=== PATIENT | female | born 1970 | race Caucasian/White ===

== ENCOUNTER 2016-04-25 15:50 | Emergency (ER) | payer OTHER | END 2016-04-25 17:25 | disposition home or self-care (01) | LOC: ER1 15:50 | DX: S39.012A Strain of muscle, fascia and tendon of lower back, initial encounter (principal); F17.210 Nicotine dependence, cigarettes, uncomplicated; K21.9 Gastro-esophageal reflux disease without esophagitis; G89.29 Other chronic pain; Z88.6 Allergy status to analgesic agent; Z79.891 Long term (current) use of opiate analgesic; Z79.899 Other long term (current) drug therapy; X58.XXXA Exposure to other specified factors, initial encounter | CPT/HCPCS: 96372; 99283; J1100; J1885 ==

== ENCOUNTER → 2016-05-13 | Outpatient (CLI) | payer OTHER ==
[2016-05-13 18:14] LABS: RED BLOOD COUNT 4.46 M/UL (4.00-5.10); WHITE BLOOD COUNT 10.7 K/UL (4.5-11.0)
[2016-05-13 18:28] LABS: BUN/CREATININE RATIO 7 (0-10)
== END ==
LOC: LAB 17:26
PROVIDERS: Orthopaedic Surgery
DX: Z01.812 Encounter for preprocedural laboratory examination (principal)
CPT/HCPCS: 36415; 71020; 80048; 85027

== ENCOUNTER 2016-08-03 12:39 | Emergency (ER) | payer OTHER ==
[2016-08-03 13:58] LABS: RED BLOOD COUNT 4.46 M/UL (4.00-5.10); WHITE BLOOD COUNT 10.2 K/UL (4.5-11.0)
== END 2016-08-03 16:36 | disposition home or self-care (01) ==
LOC: ER1 12:39
PROVIDERS: Emergency Medicine
DX: M79.89 Other specified soft tissue disorders (principal); E78.5 Hyperlipidemia, unspecified; F17.200 Nicotine dependence, unspecified, uncomplicated; Z88.6 Allergy status to analgesic agent
CPT/HCPCS: 36415; 71010; 80053; 82550; 83880; 84484; 85025; 93005; 93925; 93970; 99284

== ENCOUNTER → 2020-03-03 | Outpatient (CLI) | payer OTHER | LOC: KOH-I 14:17 | DX: M25.511 Pain in right shoulder (principal) | CPT/HCPCS: 73030 ==

== ENCOUNTER 2021-06-18 18:22 | Observation (INO) | payer OTHER ==
[~2021-06-18] VITALS: Ht 157.5 cm; Wt 53.1 kg
[~2021-06-18 18:22] MED LIST: DISKETS40 MG PO; VITAMIN D21250 MCG PO
[2021-06-18 23:30] LABS: RED BLOOD COUNT 4.34 M/UL (4.00-5.10); WHITE BLOOD COUNT 13.3 K/UL (4.5-11.0)
[2021-06-18 23:48] LABS: BUN/CREATININE RATIO 8 (0-10)
[2021-06-19] MEDS ORDERED: EFFER-K 10 MEQ10 MEQ PO (09:53)
[2021-06-19] MEDS ORDERED: ATORVASTATIN CA20 MG PO (09:53)
[2021-06-19] MEDS ORDERED: BUSPIRONE HCL15 MG PO (09:53)
[2021-06-19] MEDS ORDERED: CITALOPRAM HBR10 MG PO (09:54)
[2021-06-19] MEDS ORDERED: VOLTAREN ARTHRI20 GM TOP (09:56)
[2021-06-19] MEDS ORDERED: LASIX TAB 20 MG20 MG PO (09:57)
[2021-06-19] MEDS ORDERED: GABAPENTIN800 MG PO (09:58)
[2021-06-19] MEDS ORDERED: HYDROCHLOROTH12.5 M1 PO (09:59)
[2021-06-19] MEDS ORDERED: ROBAXIN 750 MG750 MG PO (09:59)
[2021-06-19] MEDS ORDERED: DOCUSATE SODIU100 MG PO (10:00)
[2021-06-19] MEDS ORDERED: OMEPRAZOLE40 MG PO (10:00)
[2021-06-19] MEDS ORDERED: BENADRYL25 MG PO (10:06)
[2021-06-19] MEDS ORDERED: HYDROCODON-ACE1 EAC4 PO (14:12)
== END 2021-06-20 12:00 | disposition home or self-care (01) ==
LOC: ER1 18:22 → MED SURG 4 06-19 02:27 → CDU 06-19 02:27 → MED SURG 4 06-19 04:38
PROVIDERS: Family Medicine; Surgery; ADMIT Internal Medicine
PROC: 0DTJ4ZZ Resection of Appendix, Percutaneous Endoscopic Approach (ICD-10-PCS; principal; 2021-06-19 11:00)
DX: K35.80 Unspecified acute appendicitis (principal); Z20.822 Contact with and (suspected) exposure to COVID-19; I10 Essential (primary) hypertension; E78.5 Hyperlipidemia, unspecified; G89.29 Other chronic pain; M54.9 Dorsalgia, unspecified; M54.2 Cervicalgia; F17.210 Nicotine dependence, cigarettes, uncomplicated; Z79.899 Other long term (current) drug therapy; Z88.6 Allergy status to analgesic agent; Z90.49 Acquired absence of other specified parts of digestive tract
CPT/HCPCS: 80053; 81001; 83690; 84703; 85025; 96374; 96375; 96376; 99285; G0378; J0592; J1100; J1170; J1885; J2001; J2250; J2270; J2405; J2543; J2704; J2710; J3010; J7030; J7120; Q9967; U0002